=== PATIENT | male | born 1930 | race African-American/Black ===

== ENCOUNTER 2016-08-02 | Inpatient (IN) | payer MEDICARE, OTHER ==
[~2016-08-02] MED LIST: PROTONIX 40 MG40 M1 PO
[2016-08-02 18:38] LABS: HEMOGLOBIN 11.5 gm/dl (14.0-17.5); RED BLOOD COUNT 3.88 M/UL (4.20-5.50); WHITE BLOOD COUNT 8.8 K/UL (4.5-11.0)
[2016-08-03] MEDS ORDERED: REFRESH PLUS 0.41 EA OP (02:21)
[2016-08-03] MEDS ORDERED: IPRAT-ALBUT 0.5-3 ML INH (02:22)
[2016-08-03] MEDS ORDERED: PROVENTIL HFA 61 INH INH (02:23)
[2016-08-03] MEDS ORDERED: ASPIR 8181 MG PO (02:24)
[2016-08-03] MEDS ORDERED: SYMBICORT 80-41 INHA INH (02:25)
[2016-08-03] MEDS ORDERED: VITAMIN D31000 UNIT PO (02:26)
[2016-08-03] MEDS ORDERED: COLACE 100MG C100 MG PO (02:27)
[2016-08-03] MEDS ORDERED: VITAMIN B-121000 MC3 PO (02:28)
[2016-08-03] MEDS ORDERED: NAMENDA10 MG PO (02:29)
[2016-08-03] MEDS ORDERED: XALATAN2.5 ML OU (02:29)
[2016-08-03] MEDS ORDERED: DESYREL 50 MG T50 MG PO (02:30)
[2016-08-03] MEDS ORDERED: GUAIFENESIN400 MG PO (02:31)
[2016-08-03 04:55] LABS: HEMOGLOBIN 10.9 gm/dl (14.0-17.5); RED BLOOD COUNT 3.66 M/UL (4.20-5.50)
[2016-08-03 04:56] LABS: WHITE BLOOD COUNT 4.7 K/UL (4.5-11.0)
[2016-08-04 06:46] LABS: HEMOGLOBIN 10.2 gm/dl (14.0-17.5); RED BLOOD COUNT 3.42 M/UL (4.20-5.50); WHITE BLOOD COUNT 5.7 K/UL (4.5-11.0)
[2016-08-05] MEDS ORDERED: LEVAQUIN TAB 2250 MG PO (15:55)
[2016-08-05] MEDS ORDERED: MEDROL4 MG PO (15:57)
[2016-08-05] MEDS ORDERED: TAMIFLU 75 MG C75 MG PO (16:00)
== END 2016-08-05 16:52 | disposition home or self-care (01) | DRG 193 ==
PROVIDERS: Family Medicine; Physician Assistant Medical; ADMIT Internal Medicine
PROC: 5A09357 Assistance with Respiratory Ventilation, Less than 24 Consecutive Hours, Continuous Positive Airway Pressure (ICD-10-PCS; principal; 2016-08-02)
DX: J10.00 Influenza due to other identified influenza virus with unspecified type of pneumonia (principal); J96.22 Acute and chronic respiratory failure with hypercapnia; J96.21 Acute and chronic respiratory failure with hypoxia; I13.0 Hypertensive heart and chronic kidney disease with heart failure and stage 1 through stage 4 chronic kidney disease, or unspecified chronic kidney disease; I50.32 Chronic diastolic (congestive) heart failure; J98.11 Atelectasis; J44.0 Chronic obstructive pulmonary disease with (acute) lower respiratory infection; N18.3 Chronic kidney disease, stage 3 (moderate); J20.9 Acute bronchitis, unspecified; I25.10 Atherosclerotic heart disease of native coronary artery without angina pectoris; I45.10 Unspecified right bundle-branch block; E78.5 Hyperlipidemia, unspecified; J98.6 Disorders of diaphragm; D69.6 Thrombocytopenia, unspecified; D53.9 Nutritional anemia, unspecified; G47.33 Obstructive sleep apnea (adult) (pediatric); E29.1 Testicular hypofunction; G89.29 Other chronic pain; M54.9 Dorsalgia, unspecified; M10.9 Gout, unspecified; Z86.73 Personal history of transient ischemic attack (TIA), and cerebral infarction without residual deficits; Z87.891 Personal history of nicotine dependence; Z79.82 Long term (current) use of aspirin; Z99.81 Dependence on supplemental oxygen; Z79.51 Long term (current) use of inhaled steroids; Z79.899 Other long term (current) drug therapy; Z98.890 Other specified postprocedural states; Z80.0 Family history of malignant neoplasm of digestive organs; Z80.8 Family history of malignant neoplasm of other organs or systems; Z82.49 Family history of ischemic heart disease and other diseases of the circulatory system
CPT/HCPCS: 36415; 36600; 70450; 71010; 71020; 71250; 80048; 80053; 82550; 82553; 82803; 83036; 83605; 83874; 83880; 84484; 85025; 85027; 87040; 93005; 94640; 94660; 96374; 96375; 97116; 97530; 99285; J1956; J2930; J7030; J7509

== ENCOUNTER 2016-08-07 03:04 | Inpatient (IN) | payer MEDICARE, OTHER ==
[~2016-08-07] VITALS: Ht 182.9 cm; Wt 81.8 kg
[~2016-08-07 03:04] MED LIST changes: +ASPIR 8181 MG PO; +COLACE 100MG C100 MG PO; +DESYREL 50 MG T50 MG PO; +GUAIFENESIN400 MG PO; +IPRAT-ALBUT 0.5-3 ML INH; +LEVAQUIN TAB 2250 MG PO; +MEDROL4 MG PO; +NAMENDA10 MG PO; +PROVENTIL HFA 61 INH INH; +REFRESH PLUS 0.41 EA OP; +SYMBICORT 80-41 INHA INH; +TAMIFLU 75 MG C75 MG PO; +VITAMIN B-121000 MC3 PO; +VITAMIN D31000 UNIT PO; +XALATAN2.5 ML OU
[2016-08-07 04:27] LABS: HEMOGLOBIN 11.6 gm/dl (14.0-17.5); WHITE BLOOD COUNT 7.1 K/UL (4.5-11.0)
[2016-08-07 04:30] LABS: RED BLOOD COUNT 3.87 M/UL (4.20-5.50)
[2016-08-07] MEDS ORDERED: ASPIRIN EC81 MG PO (11:36)
[2016-08-07] MEDS ORDERED: SEROQUEL25 MG PO (11:37)
[2016-08-07] MEDS ORDERED: SEROQUEL50 MG PO (11:37)
[2016-08-08 04:24] LABS: HEMOGLOBIN 9.8 gm/dl (14.0-17.5)
[2016-08-08 04:27] LABS: RED BLOOD COUNT 3.22 M/UL (4.20-5.50)
[2016-08-09 04:31] LABS: HEMOGLOBIN 9.9 gm/dl (14.0-17.5); RED BLOOD COUNT 3.34 M/UL (4.20-5.50); WHITE BLOOD COUNT 8.5 K/UL (4.5-11.0)
[2016-08-10 04:53] LABS: HEMOGLOBIN 9.1 gm/dl (14.0-17.5); RED BLOOD COUNT 3.07 M/UL (4.20-5.50)
[2016-08-10 05:08] LABS: WHITE BLOOD COUNT 5.6 K/UL (4.5-11.0)
[2016-08-13 06:19] LABS: RED BLOOD COUNT 3.37 M/UL (4.20-5.50); WHITE BLOOD COUNT 5.2 K/UL (4.5-11.0)
== END 2016-08-14 22:00 | DRG 189 ==
LOC: ER1 03:04 → MED SURG 4 07:45 → ZEROF 07:45 → MED SURG 4 10:28
PROVIDERS: Internal Medicine; Internal Medicine Infectious Disease; Student in an Organized Health Care Education/Training Program; ADMIT Internal Medicine
DX: J96.22 Acute and chronic respiratory failure with hypercapnia (principal); J44.1 Chronic obstructive pulmonary disease with (acute) exacerbation; I13.0 Hypertensive heart and chronic kidney disease with heart failure and stage 1 through stage 4 chronic kidney disease, or unspecified chronic kidney disease; I50.32 Chronic diastolic (congestive) heart failure; N17.9 Acute kidney failure, unspecified; J98.11 Atelectasis; E87.2 Acidosis; F02.81 Dementia in other diseases classified elsewhere, unspecified severity, with behavioral disturbance; J96.21 Acute and chronic respiratory failure with hypoxia; J10.1 Influenza due to other identified influenza virus with other respiratory manifestations; N18.3 Chronic kidney disease, stage 3 (moderate); D69.6 Thrombocytopenia, unspecified; D50.9 Iron deficiency anemia, unspecified; E78.5 Hyperlipidemia, unspecified; G30.9 Alzheimer's disease, unspecified; R51 Headache; E29.1 Testicular hypofunction; M10.9 Gout, unspecified; H91.90 Unspecified hearing loss, unspecified ear; H54.3 Unqualified visual loss, both eyes; H26.9 Unspecified cataract; Z79.82 Long term (current) use of aspirin; Z99.81 Dependence on supplemental oxygen; Z79.51 Long term (current) use of inhaled steroids; Z79.899 Other long term (current) drug therapy; Z88.1 Allergy status to other antibiotic agents; Z98.890 Other specified postprocedural states; Z80.0 Family history of malignant neoplasm of digestive organs; Z82.49 Family history of ischemic heart disease and other diseases of the circulatory system
CPT/HCPCS: 36415; 36600; 71010; 71020; 80048; 80053; 82550; 82553; 82728; 82803; 82962; 83540; 83550; 83605; 83874; 83880; 84484; 85025; 85027; 85610; 85730; 87040; 92610; 93005; 94640; 94664; 96374; 97110; 97116; 97530; 99285; J1335; J1756; J1956; J2930; J7030; J7050; J7509